=== PATIENT | female | born 1985 | race Caucasian/White ===

== ENCOUNTER 2016-12-27 10:28 | Emergency (ER) | payer BC ==
[~2016-12-27] VITALS: Ht 165.1 cm; Wt 94.0 kg
[~2016-12-27 10:28] MED LIST: AMOX1TAB10 PO; BACTDS PO; BENZ100C70 PO; BUTA1CAP38 PO; CEPH-443 PO
[2016-12-27 10:30] VITALS: Ht 165.1 cm; Wt 94.0 kg
[2016-12-27] MEDS ORDERED: IBUPROFEN 600 MG TAB PO ONE (11:00)
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
[2016-12-27] MEDS ORDERED: IBUP-1542 PO (12:11)
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
== END 2016-12-27 12:18 | disposition home or self-care (01) ==
LOC: FTE 10:28
DX: S13.9XXA Sprain of joints and ligaments of unspecified parts of neck, initial encounter (principal); J45.909 Unspecified asthma, uncomplicated; V43.52XA Car driver injured in collision with other type car in traffic accident, initial encounter
CPT/HCPCS: 72040; Z7502; Z7610

== ENCOUNTER 2017-01-10 10:57 | Emergency (ER) | payer BC ==
[~2017-01-10] VITALS: Wt 97.5 kg
[~2017-01-10 10:57] MED LIST changes: +IBUP-1542 PO
[2017-01-10] MEDS ORDERED: ALBUTEROL 0.083% (NEB) 2.5 MG/3 ML AMP HHN STA (12:17)
[2017-01-10] MEDS ORDERED: IPRATROPIUM (NEB) 0.5 MG/2.5 ML AMP HHN ONE (12:30)
--- NOTE | 2017-01-10 13:03 | RADRPT ---
PROCEDURE: Chest Radiograph. CLINICAL INDICATION: Cough TECHNIQUE: Single frontal chest radiograph. COMPARISON: Chest radiograph 05/11/2014 FINDINGS: The cardiomediastinal silhouette is within normal limits. No infiltrate or effusion is seen. Th e bones are intact. IMPRESSION: 1. Unremarkable chest radiograph. RPTAT: KK .Tony Webb MD, MD Date Time Electronically viewed and signed by .Tony Webb MD, on 01/10/2017 13:03 .B/
[2017-01-10] MEDS ORDERED: MED4DP PO (14:00)
[2017-01-10] MEDS ORDERED: ALBU8.5H3 INH (14:00)
--- NOTE | 2017-01-10 14:07 | ERD ---
ER Documentation Chief Complaint Date/Time DATE: 01/10/17 TIME: 14:04 Chief Complaint flu like symptoms x 5 days,cough HPI This is a 31-year-old female presents to the ER with a cough for the last 5 days. Patient states that her cough is getting worse and now she is wheezing at night. Patient does complain of chest tightness and shortness of breath secondary to cough. Patient has a past medical history of childhood asthma and she uses her albuterol inhaler as needed. Patient denies any sore throats. She does admit to ear pressure. She does not have any fevers or chills. She denies nausea vomiting or diarrhea. ROS 12 point review of systems was done, all negative except per HPI. Medications Home Meds Active Scripts Albuterol Sulfate* (Proair HFA*) 8.5 Gm Hfa.aer.ad, 2 PUFF INH Q4, #1 INHALER Prov:JUANITA SARKAR 01/10/17 Methylprednisolone* (Medrol* DOSE PACK) 4 Mg/Dose-Pack Tab.ds.pk, 4 MG PO . DIRECTED for 6 Days, PACKET Prov:JUANITA SARKAR 01/10/17 Ibuprofen* (Motrin*) 600 Mg Tab, 600 MG PO Q6H Y for PAIN, #20 TAB Prov:MAHESH GALEAS MD 12/27/16 Cephalexin* (Keflex*) 500 Mg Capsule, 500 MG PO QID for 7 Days, CAP Prov:DON BUCK PA-C 04/02/16 Sulfamethoxazole-Trimethoprim* (Bactrim* DS) 800-160 Mg Tab, 1 TAB PO BID for 7 Days, TAB Prov:DON BUCK PA-C 04/02/16 Amox Tr/Potassium Clavulanate (Amox Tr-K Clv 875-125 Mg Tab) 1 Tab Tablet, 1 TAB PO BID, #14 TAB Prov:GREGORY MATHIS PA-C 12/31/15 Benzonatate* (Tessalon Perle*) 100 Mg Capsule, 100 MG PO Q8H Y for COUGH, #20 CAP Prov:DON BUCK PA-C 11/17/15 Dqopgbxvwz-Yqcyhmdpqdbwr-Vhfxyexx* (Fioricet*) 50-300-40 Mg Capsule, 1 CAP PO Q4H Y for HEADACHE, #20 CAP Prov:CIELODON Asia VÁSQUEZ 11/17/15 Allergies Allergies: Coded Allergies: No Known Drug Allergy (Verified Allergy, Mild, 12/27/16) PMhx/Soc History of Surgery: Yes () Anesthesia Reaction: No Hx Neurological Disorder: No Hx Respiratory Disorders: Yes (asthma) Hx Cardiac Disorders: No Hx Psychiatric Problems: No Hx Miscellaneous Medical Probl: No Hx Alcohol Use: Yes (occassional) Hx Substance Use: No Hx Tobacco Use: No Physical Exam Vitals Vital Signs Date Time Temp Pulse Resp B/P Pulse Ox O2 Delivery O2 Flow Rate FiO2 01/10/17 12:41 83 19 97 21 01/10/17 10:59 98.1 95 18 115/58 99 Physical Exam GENERAL: The patient is well-developed, well-nourished, in no acute distress. NECK: Cervical spine is non tender with no step off. Supple, no nuchal rigidity HEENT: Atraumatic. Pupils equal, round and reactive to light. Extraocular muscles are grossly intact. Conjunctivae pink, no discharge. Bilateral tympanic membranes are clear with no evidence of erythema, effusion or dulling of the light reflex. Tonsilar erythema with no exudates or uvular deviation. Clear rhinorrhea. RESPIRATORY: Expiratory wheezing in all lung salazar. No rales rhonchi or crackles. HEART: Regular rate and rhythm. No murmurs, clicks, rubs or gallops. EXTREMITIES: No clubbing or cyanosis. Full range of motion. Grossly neurovascularly intact. NEUROLOGIC: Alert and oriented. Cranial nerves II through XII are intact. SKIN: There is no rash. The skin is warm and dry. Results 24 hrs Current Medications Medications (Trade) Dose Ordered Sig/Tere Route PRN Reason Start Time Stop Time Status Last Admin Dose Admin Albuterol (Proventil 0.083% (Neb)) 5 mg ONCE STAT HHN 01/10/17 12:17 01/10/17 12:19 DC 01/10/17 12:39 Ipratropium [place] (Atrovent 0.02% (Neb)) 0.5 mg ONCE ONCE HHN 01/10/17 12:30 01/10/17 12:31 DC 01/10/17 12:38 Procedures/MDM ER course: Patient was stable throughout ER course. She was given a nebulizing treatment with albuterol and ipratropium. She is wheezing was much improved and she felt significantly better. Differential diagnosis includes but is not limited to; Viral URI, allergic rhinitis, bronchitis, pertussis,pneumonia. This is likely viral in etiology. Patient likely has bronchitis. Clinical suspicion for pneumonia is low as patient appears well, is not hypoxic or in any respiratory distress. Additionally, patients physical examination is benign. Plan was discussed with patient they understand and agree. Patient needs to follow up with PCP in 1-2 days or return to ER sooner if symptoms worsen. Departure Diagnosis: Primary Impression: Bronchitis Condition: Stable Patient Instructions: Bronchitis With Wheezing (Adult) Additional Instructions: Call your primary care doctor TOMORROW for an appointment during the next 1-2 days.See the doctor sooner or return here if your condition worsens before your appointment time. JUANITA SARKAR January 10, 2017 14:07
[2017-01-10] MEDS ORDERED: D-ME473S18 PO (14:11)
== END 2017-01-10 14:27 | disposition home or self-care (01) ==
LOC: FTE 10:57
DX: J42 Unspecified chronic bronchitis (principal); J45.909 Unspecified asthma, uncomplicated
CPT/HCPCS: 71010; 94664; Z7610

== ENCOUNTER 2017-08-21 10:37 | Emergency (ER) | payer BC, MEDICAID ==
[~2017-08-21] VITALS: Ht 165.1 cm; Wt 92.8 kg
[~2017-08-21 10:37] MED LIST changes: +ALBU8.5H3 INH; +D-ME473S18 PO; +MED4DP PO
[2017-08-21 10:39] VITALS: Ht 165.1 cm; Wt 92.8 kg
[2017-08-21] MEDS ORDERED: ALBUTEROL 0.083% (NEB) 2.5 MG/3 ML AMP HHN STA (11:15)
--- NOTE | 2017-08-21 11:19 | ERD ---
ER Documentation Chief Complaint Chief Complaint cough , chest congestion , sore throat HPI 32 year old female with a history of cough, sore throat, congestion and sore throat for 3 days. She reports wheezing and yellow colored sputum with blood- tinged sputum. Patient states that she has some chest congestion with chest pain when she coughs as well. She denies fevers or chills. ROS All systems reviewed and are negative except as per history of present illness. Medications Home Meds Active Scripts Cetirizine Hcl* (Zyrtec*) 10 Mg Capsule, 10 MG PO DAILY, #10 TAB.CHEW Prov:EVELIN GILBERT PA-C 08/21/17 Fluticasone Propionate (Flonase Allergy Relief) 9.9 Ml Martinez.susp, 1 SPRAY NASAL BID, #1 BOTTLE TO EACH NOSTRIL Prov:EVELIN GILBERT PA-C 08/21/17 Albuterol Sulfate* (Ventolin HFA*) 18 Gm Hfa.aer.ad, 2 PUFF INHALATION Q4H, #1 INHALER Prov:EVELIN GILBERT PA-C 08/21/17 Dextromethorphan Hb-Promethazine Hcl (Promethazine DM Syrup) 473 Ml Syrup, 10 ML PO Q6H Y for COUGH, #4 OZ Prov:JUANITA SARKAR 01/10/17 Albuterol Sulfate* (Proair HFA*) 8.5 Gm Hfa.aer.ad, 2 PUFF INH Q4, #1 INHALER Prov:JUANITA SARKAR 01/10/17 Methylprednisolone* (Medrol* DOSE PACK) 4 Mg/Dose-Pack Tab.ds.pk, 4 MG PO . DIRECTED for 6 Days, PACKET Prov:JUANITA SARKAR 01/10/17 Ibuprofen* (Motrin*) 600 Mg Tab, 600 MG PO Q6H Y for PAIN, #20 TAB Prov:MAHESH GALEAS MD 12/27/16 Cephalexin* (Keflex*) 500 Mg Capsule, 500 MG PO QID for 7 Days, CAP Prov:DON BUCK PA-C 04/02/16 Sulfamethoxazole-Trimethoprim* (Bactrim* DS) 800-160 Mg Tab, 1 TAB PO BID for 7 Days, TAB Prov:DON BUCK PA-C 04/02/16 Amox Tr/Potassium Clavulanate (Amox Tr-K Clv 875-125 Mg Tab) 1 Tab Tablet, 1 TAB PO BID, #14 TAB Prov:DELFINAGREGORY Payal VÁSQUEZ 12/31/15 Benzonatate* (Tessalon Perle*) 100 Mg Capsule, 100 MG PO Q8H Y for COUGH, #20 CAP Prov:CIELODON Betancourt PA-C 11/17/15 Eulgdjshis-Hkkxxuooqualm-Egcawwgr* (Fioricet*) 50-300-40 Mg Capsule, 1 CAP PO Q4H Y for HEADACHE, #20 CAP Prov:DON BUCK [place] VÁSQUEZ 11/17/15 Allergies Allergies: Coded Allergies: No Known Drug Allergy (Verified Allergy, Mild, 12/27/16) PMhx/Soc History of Surgery: Yes () Anesthesia Reaction: No Hx Neurological Disorder: No Hx Respiratory Disorders: Yes (asthma) Hx Cardiac Disorders: No Hx Psychiatric Problems: No Hx Miscellaneous Medical Probl: No Hx Alcohol Use: Yes (occassional) Hx Substance Use: No Hx Tobacco Use: No Physical Exam Vitals Vital Signs Date Time Temp Pulse Resp B/P Pulse Ox O2 Delivery O2 Flow Rate FiO2 08/21/17 11:26 77 18 96 21 08/21/17 10:39 98.6 96 16 127/85 98 Physical Exam General: Well-developed, well-nourished. The patient appears in no acute distress. HEENT: Head is normocephalic, atraumatic. No scleral icterus. TMs normal, oropharynx is clear. Neck: Supple. Nontender. Lungs: Coarse breath sounds to lung bases bilaterally, with wheezing. Nonlabored. Heart: Regular rate and rhythm. S1 and S2 are normal. No murmurs, gallops, or rubs. Abdomen: Nondistended. Extremities: No clubbing or cyanosis. Moving extremities x 4. No weakness. Neurologic: Alert and oriented 3. No focal deficits. Normal speech and gait. Skin: Normal turgor. No rash or lesions. Results 24 hrs Current Medications Medications (Trade) Dose Ordered Sig/Tere Route PRN Reason Start Time Stop Time Status Last Admin Dose Admin Albuterol (Proventil 0.083% (Neb)) 5 mg ONCE STAT HHN 08/21/17 11:15 12/19/17 11:16 DC 08/21/17 11:24 Chest X-ray 1V Interpreted by me as well as radiologist: Soft Tissue: No acute abnormalities Bones: No acute abnormalities Mediastinum/Cardiac Silhouette/Lungs: No acute abnormalities Procedures/MDM ED COURSE: Patient was given albuterol 5 mg neb treatment, chest x-ray was obtained. MEDICAL DECISION MAKIN-year-old female comes in with URI symptoms, with wheezing and most likely a viral URI. Asthma exacerbation noted, she was treated with a breathing treatment. And reports to be feeling better. The patient has a differential diagnosis of a viral upper respiratory infection, bacterial upper respiratory infection, bronchitis, pneumonia, pharyngitis, laryngitis, epiglottitis, croup, pneumonia. Patient has a normal pulmonary examination, clear breath sounds, normal pulse oximetry, with no corrective measures needed at this time. Fluids, rest, antipyretics were encouraged. Departure Diagnosis: Primary Impression: Cough Additional Impression: Asthma Condition: Good EVELIN GILBERT PA-C Aug 21, 2017 11:19
--- NOTE | 2017-08-21 13:01 | RADRPT ---
PROCEDURE: XR Chest. CLINICAL INDICATION: Cough and congestion. TECHNIQUE: Frontal and Lateral views of the chest were obtained. COMPARISON: 01/10/2017. FINDINGS: The cardiomediastinal silhouette is normal in size. No focal consolidation is seen. No pleural effusion is seen. No definite pneumothorax is seen. No acute osseous abnormality. IMPRESSION: No radiographic evidence of an acute cardiopulmonary process. RPTAT: AAEE Sharron Ahmadi Physician Date Time Electronically viewed and signed by Sharron Ahmadi Physician on 08/21/2017 13:00 PH/
[2017-08-21] MEDS ORDERED: CETI10CA PO (13:05)
[2017-08-21] MEDS ORDERED: ALBU18HF INHALATION (13:05)
[2017-08-21] MEDS ORDERED: FLUT9.9S NASAL (13:05)
[2017-08-21] MEDS ORDERED: UDROBDM PO (13:16)
== END 2017-08-21 13:22 | disposition home or self-care (01) ==
LOC: FTE 10:37
DX: R05 Cough (principal); J45.901 Unspecified asthma with (acute) exacerbation
CPT/HCPCS: 71020; 94664; Z7502; Z7610